=== PATIENT | female | born 1990 | race Caucasian/White ===

== ENCOUNTER 2017-12-30 16:35 | Emergency (ER) | payer BC ==
[~2017-12-30] VITALS: Ht 167.6 cm; Wt 79.4 kg
[2017-12-30 16:35] VITALS: BP 142/80
[2017-12-30] MEDS ORDERED: TDAP [DIPH/PERTUSSIS/TET] 0.5 ML VIAL IM STA (17:19)
[2017-12-30] MEDS ORDERED: CEPHALEXIN MONOHYDRATE 500 MG CAPSULE PO STA (17:19)
[2017-12-30] MEDS ORDERED: CEPHALEXIN MONOHYDRATE 500 MG CAPSULE PO ONE (17:47)
== END 2017-12-30 18:10 | disposition home or self-care (01) ==
LOC: ER 16:39
DX: S62.635B Displaced fracture of distal phalanx of left ring finger, initial encounter for open fracture (principal); W23.0XXA Caught, crushed, jammed, or pinched between moving objects, initial encounter; Y93.89 Activity, other specified; Y92.89 Other specified places as the place of occurrence of the external cause; Y99.8 Other external cause status
CPT/HCPCS: 73140-TC; A4606; Z7610

== ENCOUNTER 2018-01-02 08:04 | Emergency (ER) | payer BC ==
[~2018-01-02] VITALS: Ht 167.6 cm; Wt 79.4 kg
[2018-01-02 08:05] VITALS: BP 132/89
== END 2018-01-02 08:56 | disposition home or self-care (01) ==
LOC: ER 08:11
DX: S62.635D Displaced fracture of distal phalanx of left ring finger, subsequent encounter for fracture with routine healing (principal); X58.XXXD Exposure to other specified factors, subsequent encounter
CPT/HCPCS: A4606; Z7610